=== PATIENT | male | born 1985 | race Caucasian/White ===

== ENCOUNTER 2016-12-23 06:18 | Emergency (ER) | payer MEDICAID ==
[~2016-12-23] VITALS: Ht 185.4 cm; Wt 80.6 kg
[~2016-12-23 06:18] MED LIST: ENOX40SY4 SQ; HYDR-3144 PO; HYDR-3241 PO; MAGN400O4 PO; SENN1TAB7 PO; TRAM50TA2 PO
[2016-12-23 06:39] VITALS: BP 128/62
[2016-12-23] MEDS ORDERED: IBUPROFEN 200 MG TABLET PO ONE (07:30)
[2016-12-23] MEDS ORDERED: METHOCARBAMOL 750 MG TABLET PO ONE (07:30)
== END 2016-12-23 07:50 | disposition home or self-care (01) ==
LOC: ED 07:35
DX: M54.16 Radiculopathy, lumbar region (principal); Z88.8 Allergy status to other drugs, medicaments and biological substances
CPT/HCPCS: 99283